=== PATIENT | female | born 1935 | race Caucasian/White ===

== ENCOUNTER → 2016-07-29 | Outpatient (CLI) | payer BC ==
[~2016-07-29] MED LIST: DILT180C69 PO; HYDR12.55 PO; INDSR80 PO; RIVA1TAB PO
--- NOTE | 2016-07-29 13:45 | MAMMOGRAPHY REPORT ---
BILATERAL DIGITAL SCREENING MAMMOGRAM WITH CAD: 07/29/2016 CLINICAL HISTORY: Routine screening. Patient has no complaints. TECHNIQUE: Current study was also evaluated with a Computer Aided Detection (CAD) system. Bilatera l CC and MLO views were obtained. COMPARISON: Comparison is made to exams dated: 07/24/2015 mammogram, 07/18/2014 mammogram, 07/12/2013 m ammogram, 07/06/2012 mammogram, and 07/01/2011 mammogram - [facility]. BREAST COMPOSITION: The tissue of both breasts is heterogeneously dense, which may obscure small ma sses. FINDINGS: No suspicious masses, calcifications, or areas of architectural distortion are noted in e ither breast. There has been no significant interval change compared to prior exams. Scattered bilat eral benign-appearing calcifications are not significantly changed. Asymmetry in the left medial br east on the cc view is stable dating back to at least the 2007 exam. IMPRESSION: ACR BI-RADS CATEGORY 2: BENIGN There is no mammographic evidence of malignancy. A 1 year screening mammogram is recommended. The p atient will receive written notification of the results. Approximately 10% of breast cancers are not detected with mammography. A negative mammographic repor t should not delay biopsy if a clinically suggestive mass is present. Kiley Powell M.D. ah/:07/29/2016 12:40:09 Trailer Assembler: Radha Sheldon RT(R)(M), [facility] letter sent: Normal 1/2 BI-RADS Code: ACR BI-RADS Category 2: Benign
== END | disposition home or self-care (01) ==
LOC: C.MAMM 11:19
PROVIDERS: ATTEND Obstetrics & Gynecology
DX: Z12.31 Encounter for screening mammogram for malignant neoplasm of breast (principal)

== ENCOUNTER 2017-07-30 16:14 | Emergency (ER) | payer BC ==
[~2017-07-30] VITALS: Ht 165.1 cm; Wt 62.6 kg
[2017-07-30 16:14] VITALS: TEMP 36.6; Ht 165.1 cm; Wt 62.6 kg
[2017-07-30] MEDS ORDERED: ONDANSETRON INJ 2 MG/ML 2 ML VIAL IV STA ×2 (16:23→18:07)
[2017-07-30] MEDS ORDERED: MoRPHine SULFATE 4 MG/ML 1 ML CARP\\VIAL IV PRN (16:30)
[2017-07-30 16:54] LABS: ISTAT CREATININE 1.1 mg/dl (0.6-1.3); ISTAT IONIZED CALCIUM 1.16 mmol/l (1.12-1.32); ISTAT POTASSIUM 3.4 mEq/L (3.3-5.0)
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
[2017-07-30 17:00] LABS: BASO % 0.5 %; BASO ABS # 0.03 K/uL (0-0.2); EOS % 4.6 %; EOS ABS # 0.28 K/uL (0-0.5); HEMATOCRIT 44.6 % (37-47); IG# 0.02 K/uL (0.00-0.02); LYMPH % 25.4 %; LYMPH ABS # 1.56 K/uL (1.2-3.4); MEAN CELL VOLUME 88.5 fL (80-100); MEAN CORPUSCULAR HEMOGLOBIN 29.8 pg (25-34); MEAN CORPUSCULAR HGB CONC 33.6 g/dl (32-36); MEAN PLATELET VOLUME 12.1 fL (7.4-10.4); MONO % 12.2 %; MONO ABS # 0.75 K/uL (0.11-0.59); NEUT ABS # 3.51 K/uL (1.4-6.5); PLATELET COUNT 185 K/uL (130-400); RED CELL DISTRIBUTION WIDTH CV 14.7 % (11.5-14.5); RED CELL DISTRIBUTION WIDTH SD 47.5 fL (36.4-46.3); WHITE BLOOD COUNT 6.15 K/uL (4.8-10.8)
[2017-07-30 17:07] LABS: INR 1.1 (0.9-1.1); PTT PATIENT 27.3 SECONDS (21.0-31.0)
[2017-07-30 17:21] LABS: ALBUMIN 3.7 gm/dl (3.4-5.0); ALT/SGPT 23 U/L (12-78); BLOOD UREA NITROGEN 20 mg/dl (7-18); CALCIUM 9.2 mg/dl (8.5-10.1); CARBON DIOXIDE 29 mmol/L (21-32); CREATININE 1.05 mg/dl (0.60-1.20); GLUCOSE 69 mg/dl (70-99); LIPASE 225 U/L (73-393); POTASSIUM 3.3 mmol/L (3.5-5.1); SODIUM 142 mmol/L (136-145)
[2017-07-30] MEDS ORDERED: FURO-85 PO (17:23)
[2017-07-30] MEDS ORDERED: MULT-513 PO (17:23)
[2017-07-30] MEDS ORDERED: CALCTAB7 PO (17:23)
[2017-07-30] MEDS ORDERED: RIVA1TAB4 PO (17:23)
[2017-07-30] MEDS ORDERED: PROP80TA2 PO (17:23)
[2017-07-30] MEDS ORDERED: AMLO2.5T PO (17:23)
[2017-07-30 17:26] LABS: ALKALINE PHOSPHATASE 61 U/L (45-117); AST/SGOT 21 U/L (15-37); TOTAL PROTEIN 6.9 gm/dl (6.4-8.2)
[2017-07-30] MEDS ORDERED: OPTIRAY 320 IV PRN (17:30)
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
[2017-07-30] MEDS ORDERED: OXYC1TAB3 PO (19:20)
[2017-07-30] MEDS ORDERED: OXYCODONE IR HOME PACK PO ONE (19:30)
[2017-07-30] MEDS ORDERED: ONDANSETRON HOME PACK 4MG OD TAB PO ONE (19:30)
[2017-07-30] MEDS ORDERED: PROMETHAZINE HCL INJ 6.25 MG in SODIUM CHLORIDE 0.9% 50ML 50 ML IV STA (19:41)
[2017-07-30 20:15] VITALS: BP 146/90; PULSE 70; O2SAT 96
== END 2017-07-30 20:15 | disposition home or self-care (01) ==
LOC: EDBD 16:14 → C.EDA 16:16
DX: S20.219A Contusion of unspecified front wall of thorax, initial encounter (principal); R11.2 Nausea with vomiting, unspecified; V43.62XA Car passenger injured in collision with other type car in traffic accident, initial encounter; I48.91 Unspecified atrial fibrillation; I10 Essential (primary) hypertension; Z79.01 Long term (current) use of anticoagulants; Z88.0 Allergy status to penicillin

== ENCOUNTER → 2017-09-22 | Outpatient (CLI) | payer BC ==
[~2017-09-22] MED LIST changes: +AMLO2.5T PO; +CALCTAB7 PO; -DILT180C69 PO; +FURO-85 PO; -HYDR12.55 PO; -INDSR80 PO; +MULT-513 PO; +OXYC1TAB3 PO; +PROP80TA2 PO; -RIVA1TAB PO; +RIVA1TAB4 PO
--- NOTE | 2017-09-23 07:46 | MAMMOGRAPHY REPORT ---
BILATERAL DIGITAL SCREENING MAMMOGRAM TOMOSYNTHESIS WITH CAD: 09/22/2017 CLINICAL HISTORY: Routine screening. Patient has no complaints. TECHNIQUE: Breast tomosynthesis in addition to standard 2D mammography was performed. Current study was also evaluated with a Computer Aided Detection (CAD) system. COMPARISON: Comparison is made to exams dated: 08/01/2015 ultrasound, 08/01/2015 mammogram, 07/24/2015 mammogram, 07/18/2014 mammogram, 07/29/2016 mammogram, and 07/12/2013 mammogram - [facility] enter. BREAST COMPOSITION: The tissue of both breasts is heterogeneously dense, which may obscure small mas ses. FINDINGS: No suspicious masses, calcifications, or areas of architectural distortion are noted in ei ther breast. There has been no significant interval change compared to prior exams. Scattered bilater al benign-appearing calcifications are not significantly changed. IMPRESSION: ACR BI-RADS CATEGORY 2: BENIGN There is no mammographic evidence of malignancy. A 1 year screening mammogram is recommended. The pa tient will receive written notification of the results. Approximately 10% of breast cancers are not detected with mammography. A negative mammographic report should not delay biopsy if a clinically suggestive mass is present. Kiley Powell M.D. /:09/22/2017 16:19:40 Director Counseling Bureau: Nona GARCIA)(M), [facility] letter sent: Normal 1/2 BI-RADS Code: ACR BI-RADS Category 2: Benign
== END | disposition home or self-care (01) ==
LOC: C.MAMM 11:32
PROVIDERS: ATTEND Obstetrics & Gynecology
DX: Z12.31 Encounter for screening mammogram for malignant neoplasm of breast (principal)

== ENCOUNTER 2025-05-25 09:55 | Inpatient (IN) ==
[2025-05-25 10:59] LABS: Hematocrit (blood only) 45.9 % (37.0-47.0); Hemoglobin 15.3 g/dL (12.0-16.0); Immature Granulocytes # (auto) 0.02 K/uL (0.01-0.20); Immature Granulocytes % (auto) 0.3 %; Mean Corpuscular Hemoglobin 29.4 pg (25.0-34.0); Mean Corpuscular Volume 88.3 fL (80.0-100.0); Platelet Count 257 K/uL (130-400); RDW Standard Deviation 50.0 fL (36.4-46.3); Red Blood Count 5.20 M/uL (4.20-5.40); White Blood Count 6.36 K/ul (4.8-10.8)
[2025-05-25 11:17] LABS: Alanine Aminotransferase 14.0 U/L (7-52); Albumin Globulin Ratio 1.5 (0.9-2); Albumin Level 4.7 gm/dl (3.4-5.0); Alkaline Phosphatase 66.0 U/L (34-104); Anion Gap 8.0 (3-11); Bilirubin,Total 1.1 mg/dl (0.2-1.0); Blood Urea Nitrogen 16.0 mg/dl (6-23); Calcium 10.2 mg/dl (8.6-10.3); Carbon Dioxide 30.0 mmol/L (21-32); Chloride 104.0 mmol/L (98-107); Creatinine Clr Calc Pharmacy 45.8 ml/min; Globulin 3.1 gm/dl (2.5-4.0); Glucose 97.0 mg/dl (70-99(Fasting)); Potassium 3.7 mmol/L (3.5-5.1); Sodium 142.0 mmol/L (136-145); Total Protein 7.8 gm/dl (6.0-8.3)
--- NOTE | 2025-05-25 11:32 | Emergency Department Note ---
Impression & Plan BRBPR (bright red blood per rectum) ED Provider Note NAME: NEGIN PLAZA AGE: 89 SEX: F : 1935 ARRIVES VIA: Walk-In INFORMANT: Patient, ED PROVIDER(S): Zeyad Clifton MD CHIEF COMPLAINT: Rectal bleeding HPI: This is a 89-year-old female presents for rectal bleeding. Patient notes that over the past few days she has had stools that are mixed with blood. She notes that the stools are light-colored with blood when they hit the toilet bowl. She reports no black color. She reports redness in the stools as well. It is not painful. She had a colonoscopy about 3 years ago. She reports no fevers, chills, nausea, vomiting, diarrhea, pain, chest pain. ROS: See above HPI for pertinent positives & negatives. A total of 10 systems reviewed and were otherwise negative. PAST MEDICAL HISTORY: See Below PAST SURGICAL HISTORY: See Below FAMILY HISTORY: See Below SOCIAL HISTORY: See Below HOME MEDICATIONS: See Below ALLERGIES: See Below VITALS: See Below PHYSICAL EXAMINATION: General: resting comfortably in no acute distress Head: Normocephalic and atraumatic Eyes: Normal inspection, extraocular muscles intact Ear, nose, throat: Normal external exam Neck: Normal range of motion Respiratory: lungs clear to auscultation bilaterally Cardiovascular: Regular rate/rhythm, no murmur GI: soft, nontender, no guarding or rebound : Hemoccult positive stool, red/orange in color Extremities: nontender, moves all extremities Neuro: The patient awake and alert, appropriately conversive, no focal deficits, symmetric faces Skin: Warm, dry, and intact MEDICAL DECISION MAKING: This is a 89-year-old female presenting for rectal bleeding. Patient has painless rectal bleeding, stools are red. Will do screening blood work. - Bloodwork is reviewed showing no significant leukocytosis, anemia, electrolyte or creatinine abnormality. Currently on a blood thinner, Xarelto -Patient currently has active GI bleeding, appears to be lower. She appears well but will require admission due to persistent bleeding over the past few days as well as age. -Discussed with hospital service for admission Differential diagnosis: Lower versus upper GI bleed, hemorrhoids Independent History obtained from: Diagnostics interpreted by me: Cardiac Monitoring: An order was placed for continuous cardiac monitoring. The monitor shows a rate of 81 with sinus rhythm. Past Med/Surg History Problem List (Updated 05/26/25 @ 06:48 by Zeyad Clifton MD) BRBPR (bright red blood per rectum) (Acute) Hypertension Atrial fibrillation Vitamin D deficiency Tremor Postmenopausal status Osteopenia Heartburn Hypertension (Chronic) Atrial fibrillation (Chronic) Chest pain (Acute 10/29/13) Chest pain (Acute) Surgical History (Updated 05/14/21 @ 13:10 by Delilah Weeks MD, FACOG) History of tubal ligation History of oral surgery Tooth extraction History of colonoscopy History of permanent cardiac pacemaker placement History of dilation and curettage History of tonsillectomy History of cataract surgery Family History (Updated 05/05/21 @ 13:44 by Amanda Dave) Mother Breast cancer Familial tremor Grandmother (Maternal) Breast cancer Father Aortic aneurysm Denies family history of Ovarian cancer Colorectal cancer Social History (Updated 05/14/21 @ 13:00 by Devi Mckeon LPN) Smoking Status: Never smoker Do You Dip or Chew Tobacco: No; Hx Alcohol Use: No Hx Substance Use: No Preferred Language: Scottish Communication Ability: Effective Client Evaluator Required: No Beliefs That Will Affect Care: None Current Living Situation: Spouse Other Information That Helps Us Care for You: No Feels Safe at Home: Yes Safety Concerns: Feels Safe At This Time Assistive Devices: Glasses Allergies Allergies Allergy/AdvReac Type Severity Reaction Status Date / Time Penicillins Allergy Mild HIVES Verified 09/05/24 07:45 Home Meds Home Medications Medication Instructions Recorded Confirmed calcium carbonate (Calcium 600) 600 mg PO DAILY 06/25/20 05/25/25 multivitamin 1 tab PO DAILY 06/25/20 05/25/25 rivaroxaban 20 mg tablet (Xarelto) 20 mg PO DAILY 06/25/20 05/25/25 furosemide 20 mg tablet (Lasix) 20 mg PO DAILY 07/02/20 05/25/25 propranolol 80 mg tablet 60 mg PO DAILY 07/02/20 05/25/25 amlodipine 2.5 mg tablet 2.5 mg PO DAILY 09/05/24 05/25/25 Results & Data (ED) Vital Signs Vital Signs - 24 hr 05/25/25 10:10 05/25/25 11:00 05/25/25 11:30 Temperature 36.5 C Temperature Source Skin Pulse Rate 78 75 Pulse Rate from SpO2 Sensor 75 Respiratory Rate 16 18 Respiratory Effort / Characteristics Non-Labored Spontaneous Respiratory Depth Normal Respiratory Pattern Regular Blood Pressure 167/96 H 163/91 H Blood Pressure Mean 119 132 Pulse Oximetry 96 96 Oxygen Delivery Method Room Air Sepsis Recent Fever Within 48 Hours No Sepsis New/Unexplained Change in Mental Status N/A Sepsis Action Taken by Nursing No Action Required 05/25/25 11:30 05/25/25 12:00 05/25/25 12:00 Temperature Temperature Source Pulse Rate 72 75 Pulse Rate from SpO2 Sensor 72 75 Respiratory Rate 19 18 Respiratory Effort / Characteristics Respiratory Depth Respiratory Pattern Blood Pressure 169/107 H Blood Pressure Mean 130 Pulse Oximetry 95 96 Oxygen Delivery Method Room Air Sepsis Recent Fever Within 48 Hours Sepsis New/Unexplained Change in Mental Status Sepsis Action Taken by Nursing 05/25/25 12:25 05/25/25 12:30 05/25/25 12:30 Temperature Temperature Source Pulse Rate 71 76 Pulse Rate from SpO2 Sensor 76 Respiratory Rate 18 Respiratory Effort / Characteristics Respiratory Depth Respiratory Pattern Blood Pressure 162/88 H Blood Pressure Mean 122 Pulse Oximetry 96 Oxygen Delivery Method Room Air Sepsis Recent Fever Within 48 Hours Sepsis New/Unexplained Change in Mental Status Sepsis Action Taken by Nursing Laboratory Data 05/26/25 05:48 05/26/25 05:48 Lab Results 05/25/25 05/25/25 05/25/25 Range/Units 10:33 10:45 11:09 WBC 6.36 (4.8-10.8) K/ul RBC 5.20 (4.20-5.40) M/uL Hgb 15.3 (12.0-16.0) g/dL Hct 45.9 (37.0-47.0) % MCV 88.3 (80.0-100.0) fL MCH 29.4 (25.0-34.0) pg MCHC 33.3 (32.0-36.0) g/dL RDW Std Deviation 50.0 H (36.4-46.3) fL RDW Coeff of Kehinde 15.4 H (11.5-14.5) % Plt Count 257 (130-400) K/uL MPV 12.4 (9.4-12.4) fL Immature Gran % (Auto) 0.3 % Neut % (Auto) 67.1 % Lymph % (Auto) 20.3 % [place] % (Auto) 7.7 % Eos % (Auto) 3.8 % Baso % (Auto) 0.8 % Neut # (Auto) 4.27 (1.40-6.50) K/uL Lymph # (Auto) 1.29 (1.20-3.40) K/uL [place] # (Auto) 0.49 (0.11-0.59) K/uL Eos # (Auto) 0.24 (0.00-0.50) K/uL Baso # (Auto) 0.05 (0.00-0.20) K/uL Immature Gran # (Auto) 0.02 (0.01-0.20) K/uL PT 15.8 H (9.0-12.0) Seconds INR 1.5 H (0.9-1.1) APTT 37 H (21-31) Seconds PTT Ratio 1.4 Sodium 142 (136-145) mmol/L Potassium 3.7 (3.5-5.1) mmol/L Chloride 104 (98-107) mmol/L Carbon Dioxide 30 (21-32) mmol/L Anion Gap 8 (3-11) BUN 16 (6-23) mg/dl Creatinine 0.81 (0.6-1.2) mg/dl Est Cr Clr Drug Dosing 45.8 ml/min eGFR 70.21 BUN/Creatinine Ratio 19.8 (10-20) Glucose 97 (70-99(Fasting)) mg/dl Calcium 10.2 (8.6-10.3) mg/dl Total Bilirubin 1.1 H (0.2-1.0) mg/dl AST 25 (13-39) U/L ALT 14 (7-52) U/L Alkaline Phosphatase 66 (34-104) U/L Total Protein 7.8 (6.0-8.3) gm/dl Albumin 4.7 (3.4-5.0) gm/dl Globulin 3.1 (2.5-4.0) gm/dl Albumin/Globulin Ratio 1.5 (0.9-2) POC Stool Occult Blood Negative (Negative) Blood Type A Positive Antibody Screen NEGATIVE Discharge Plan Visit Data Chief Complaint: Rectal Bleed Stated Complaint: RECTAL BLEEDING, REF BY DOC ED Provider: Clifton,Niketu J. Discharge Problem: BRBPR (bright red blood per rectum) Patient Disposition: Admitted As Inpatient Condition: Fair Discharge Instructions Interventions: ED Discharge Assessment Last Done: 05/25/25 15:35
[2025-05-25 11:45] LABS: INR 1.5 (0.9-1.1); Partial Thromboplastin Time 37 Seconds (21-31); Prothrombin Time 15.8 Seconds (9.0-12.0)
[2025-05-25] MEDS ORDERED: ACETAMINOPHEN 325 MG TAB PO PRN (13:36)
--- NOTE | 2025-05-25 13:49 | History & Physical Report ---
"Date of Service May 25, 2025 Assessment & Plan (1) BRBPR (bright red blood per rectum): (2) Atrial fibrillation: (3) Hypertension: Plan This is an 89 year old female with past medical history of A fib and HTN who presented to the ED on 05/25/2025 for BRBPR. #BRBPR w/ ~ 3 day hx of BRBPR in toilet bowel and when wiping. Suspect diverticular vs hemorrhoidal in the setting of Xarelto Hgb completely stable at 15.3. Renal function WNL FOBT negative in ED but per ED provider rectal exam with red/orange stool Hold Xarelto & monitor BM's, no BM since 05/24 evening & also was her last dose of Xarelto. Suspect bleeding will subside with holding anticoagulation Maintain clear liquid diet AM hgb, monitor for further signs of bleeding. #Hyperbilirubinemia non-specific elevation of TB at 1.1 with remainder of LFTs WNL No abdominal imaging in chart AM CMP & DB #A fib | HTN Hold Xarelto in the setting of bleeding Continue Propranolol & Amlodipine. DVT prophylaxis: SCD's Code: full Updated at bedside at time of admission. Case was discussed with Dr. Srinivasan at time of admission. History of Present Illness Primary Care Provider: Gina Scanlon MD This is an 89 year old female with past medical history of A fib and HTN who presented to the ED on 05/25/2025 for BRBPR. Lizbet was seen & examined this morning. She reports that she has had ongoing rectal bleeding w/ BM's for the last 3 days. Reports her last episode was yesterday evening. She states that the blood is on the toilet paper and in the toilet bowel. She also believes that the stool is mixed with blood. She reports slight abdominal discomfort but denies any pain. Denies this happening in the past. States she had a CN in 2021. Her last dose of Xarelto was yesterday evening. She denies any additional complaints including CP, SOB, changes in bladder, LE edema, fever, chills, headache, or dizziness. While in the ED, a rectal exam was performed by the ED physician indicating red/orange stool. She was ordered no imaging. CBC is unremarkable with a hgb of 15.3. INR was elevated at 1.5 secondary to Xarelto use. BMP was unremarkable as well. TB was nonspecifically elevated at 1.1 but no additional elevations of her LFTs. FOBT testing in the ED was negative. Code discussion did take place and she does confirm that she is a full code. Allergies Allergy/AdvReac Type Severity Reaction Status Date / Time Penicillins Allergy Mild HIVES Verified 09/05/24 07:45 Home Medications Medication Instructions Recorded Confirmed Type calcium carbonate (Calcium 600) 600 mg PO DAILY 06/25/20 05/25/25 History multivitamin 1 tab PO DAILY 06/25/20 05/25/25 History rivaroxaban 20 mg tablet (Xarelto) 20 mg PO DAILY 06/25/20 05/25/25 History furosemide 20 mg tablet (Lasix) 20 mg PO DAILY 07/02/20 05/25/25 History propranolol 80 mg tablet 60 mg PO DAILY 07/02/20 05/25/25 History amlodipine 2.5 mg tablet 2.5 mg PO DAILY 09/05/24 05/25/25 History Past Med/Surg History Problem List (Updated 05/25/25 @ 13:55 by Daya Vasquez PA-C) BRBPR (bright red blood per rectum) Hypertension Atrial fibrillation Vitamin D deficiency Tremor Postmenopausal status Osteopenia Heartburn Hypertension (Chronic) Atrial fibrillation (Chronic) Chest pain (Acute 10/29/13) Chest pain (Acute) Surgical History (Updated 05/14/21 @ 13:10 by Delilah Weeks MD, FACOG) History of tubal ligation History of oral surgery Tooth extraction History of colonoscopy History of permanent cardiac pacemaker placement History of dilation and curettage History of tonsillectomy History of cataract surgery Family History (Updated 05/05/21 @ 13:44 by Amanad Dave) Mother Breast cancer Familial tremor Grandmother (Maternal) Breast cancer Father Aortic aneurysm Denies family history of Ovarian cancer Colorectal cancer Social History (Updated 05/14/21 @ 13:00 by Devi Mckeon LPN) Smoking Status: Never smoker Do You Dip or Chew Tobacco: No; Preferred Language: Upper Sorbian Feels Safe at Home: Yes Physical Exam Physical Exam: General: NAD, VS: BP 162/88; P76; R18; T36.5C Resp: normal respiratory effort, lungs clear to auscultation CV: RRR, no murmur Abd: normal bowel sounds, non tender Extremities: Moves all extremities, no edema Neuro: A&O x3 Skin: intact, no lesions noted Results & Data Results & Data Vital Signs (Past 12 Hours) Vital Signs Temp Pulse Resp BP Pulse Ox O2 Del Method 05/25/25 12:30 76 18 96 Room Air 05/25/25 12:30 162/88 H 05/25/25 12:25 71 05/25/25 12:00 75 18 96 05/25/25 12:00 169/107 H 05/25/25 11:30 72 19 95 Room Air 05/25/25 11:30 163/91 H 05/25/25 11:00 75 18 96 05/25/25 10:10 36.5 C 78 16 167/96 H 96 Room Air Supervising Physician Co-Signing Physician Notes The patient was seen by me. The chart was reviewed. Case discussed with VICTOR M Stone. Agree with assessment and plan PG Care Time/CCT Total # of Minutes Spent Total Time Spent with Patient: Total time spent is greater than 50% in coordination of care (as documented) at patient's floor/unit and/or counseling patient: Coding Level of Care Code 93012 INT INP/OBS CARE 2/55MIN Diagnoses BRBPR (bright red blood per rectum) K62.5 Atrial fibrillation I48.91 Hypertension I10"
[2025-05-26 06:08] LABS: Hematocrit (blood only) 38.1 % (37.0-47.0); Hemoglobin 12.6 g/dL (12.0-16.0); Mean Corpuscular Hemoglobin 28.8 pg (25.0-34.0); Mean Corpuscular Volume 87.0 fL (80.0-100.0); Platelet Count 192 K/uL (130-400); RDW Standard Deviation 48.6 fL (36.4-46.3); Red Blood Count 4.38 M/uL (4.20-5.40); White Blood Count 5.17 K/ul (4.8-10.8)
[2025-05-26 06:40] LABS: Alanine Aminotransferase 10.0 U/L (7-52); Albumin Level 3.8 gm/dl (3.4-5.0); Alkaline Phosphatase 51.0 U/L (34-104); Anion Gap 8.0 (3-11); Bilirubin,Total 1.0 mg/dl (0.2-1.0); Blood Urea Nitrogen 17.0 mg/dl (6-23); Calcium 8.8 mg/dl (8.6-10.3); Carbon Dioxide 28.0 mmol/L (21-32); Chloride 107.0 mmol/L (98-107); Creatinine Clr Calc Pharmacy 51.5 ml/min; Glucose 83.0 mg/dl (70-99(Fasting)); Potassium 3.9 mmol/L (3.5-5.1); Sodium 143.0 mmol/L (136-145); Total Protein 6.0 gm/dl (6.0-8.3)
[2025-05-26 07:20] VITALS: BP 131/80; PULSE 98; RESP 17; TEMP 98.2; O2SAT 96
[2025-05-26] MEDS: MULTIVITAMIN TAB PO SCH (09:34)
[2025-05-26] MEDS: PROPRANOLOL HCL LA 80 MG CAPCR PO SCH (09:35)
--- NOTE | 2025-05-26 09:44 | Discharge Summary ---
"Discharge Summary Date of Service May 26, 2025 Principal Dx & Hospital Course #1 = Principal Diagnosis (1) BRBPR (bright red blood per rectum): (2) Atrial fibrillation: (3) Hypertension: Plan This is an 89 year old female with past medical history of A fib and HTN who presented to the ED on 05/25/2025 for BRBPR. #BRBPR - resolved w/ ~ 3 day hx of BRBPR in toilet bowel and when wiping. Suspect diverticular vs hemorrhoidal in the setting of Xarelto Hgb WNL. Renal function WNL FOBT negative in ED but per ED provider rectal exam with red/orange stool. BM overnight w/ blood tinged & BM 05/26 prior to discharge brown w/o signs of bleeding. Plan to resume Xarelto on 05/28. Resume previous diet Recommend discuss w/ PCP at follow up risks vs benefits of repeat CN. - last CN in 2021 & pt w/ advanced age + comorbidities. #Hyperbilirubinemia - resolved non-specific elevation of TB at 1.1 with remainder of LFTs WNL on admission; repeat on 05/26 shows now all LFTs including TB & DB WNL No abdominal imaging in chart #A fib | HTN Hold Xarelto in the setting of bleeding; resume 05/28. Continue Propranolol & Amlodipine. Patient discharged home 05/26. Admission HPI Per Admitting Provider This is an 89 year old female with past medical history of A fib and HTN who presented to the ED on 05/25/2025 for BRBPR. Lizbet was seen & examined this morning. She reports that she has had ongoing rectal bleeding w/ BM's for the last 3 days. Reports her last episode was yesterday evening. She states that the blood is on the toilet paper and in the toilet bowel. She also believes that the stool is mixed with blood. She reports slight abdominal discomfort but denies any pain. Denies this happening in the past. States she had a CN in 2021. Her last dose of Xarelto was yesterday evening. She denies any additional complaints including CP, SOB, changes in bladder, LE edema, fever, chills, headache, or dizziness. While in the ED, a rectal exam was performed by the ED physician indicating red/orange stool. She was ordered no imaging. CBC is unremarkable with a hgb of 15.3. INR was elevated at 1.5 secondary to Xarelto use. BMP was unremarkable as well. TB was nonspecifically elevated at 1.1 but no additional elevations of her LFTs. FOBT testing in the ED was negative. Code discussion did take place and she does confirm that she is a full code. Discharge Exam General: NAD, VS: BP 131/80; P98; R17; T36.8C Resp: normal respiratory effort Extremities: Moves all extremities, no edema Neuro: A&O x3 Skin: intact, no lesions noted Discharge Plan Discharge Items Patient Disposition: Home - Self-Care Reason For Visit: RECTAL BLEEDING Discharge Diagnosis: Rectal bleed Condition on Discharge: Fair Activity: Resume your previous activity Non-emergency contact: Primary Care Provider Call non-emergency contact if: you have any medication questions and your symptoms worsen Follow-up/Referrals: Gina Scanlon MD [Primary Care Provider] - Diet: Regular Addtl Attending Provider Instructions: Mrs. Hagan, Adrian were hospitalized secondary to rectal bleeding. This is thought to be due to internal hemorrhoids being irritated. We have placed your Xarelto on hold and the bleeding seems to have slowed down. Your hemoglobin remained stable during your hospital stay and no anemia was present. Medications: Your medication list has been reviewed and reconciled upon discharge to ensure accuracy and continuity of care. An updated list of all your medications is included with your hospital discharge paperwork. Please review this list closely, and make note of any changes. Please hold Xarelto on discharge, you may resume on 05/28. Take your medications as instructed; do not skip a dose of your medicines. Make sure all of your doctors know every medicine you are taking (including o ejg-rrn-[id number] medicines, vitamins, and supplements). Call your primary care provider before taking any new medicines (including over- the-counter medicines, vitamins, and supplements), because some of these may interact with your current medications, or may make your symptoms worse. Tell your primary care provider if you cannot afford your medications. Activity: You can do normal everyday activities as your body allows. Take rest breaks if you feel tired. Do not overexert. Stop activity if you have pain, shortness of breath or feel dizzy. Follow-up appointments: Make an appointment with your primary care physician within one week of discharge. A copy of this summary will be sent to them. Every time you see your primary care physician, or any other doctor, bring your medication list, and a list of questions. At your follow up visit, please discuss with your PCP a colonoscopy. If you are interested in a repeat, they can refer you back to the GI office for one. CONTACT YOUR PRIMARY CARE PROVIDER if you experience any of the following: Shortness of breath or difficulty breathing Fevers or chills Feeling tired with normal activity or experiencing dizziness or fainting Difficulty following your treatment plan, or difficulty taking medications CALL 911 OR GO TO THE EMERGENCY DEPARTMENT if you experience any of the following: Severe abdominal pain or nausea/vomiting Severe chest pain, or chest pain that radiates (moves) to your jaw or arm Sudden, severe shortness of breath or difficulty breathing Thank you for allowing us to participate in your care. Pending Studies at Discharge: No Stand-Alone Forms: My [facility], Smoking Cessation Medications and DC Order Prescriptions: Continued multivitamin Tablet 1 tab PO DAILY calcium carbonate [Calcium 600] 600 mg calcium (1,500 mg) tablet 600 mg PO DAILY furosemide [Lasix] 20 mg tablet 20 mg PO DAILY Rx Instructions: Only taking Tuesday, Tuesday and Tuesday propranolol 80 mg tablet 60 mg PO DAILY amlodipine 2.5 mg tablet 2.5 mg PO DAILY Held Xarelto 20 mg tablet 20 mg PO DAILY Hold Instructions: Resume on 05/28/25. Rx Instructions: must administer with evening meal Discharge Orders: Discharge Order (Routine); Ordered 05/26/25 Ordered By: Daya Vasquez Admission Data Admit Date/Time: 05/25/25 13:36 Attending Provider: Raúl Srinivasan Admit Provider: Raúl Srinivasan Primary Care Provider: Gina Scanlon Other Providers: Raúl Srinivasan Other Interventions: Discharge Summary Assessment (RN) Last Done: 05/26/25 11:05 Hospital Stay Data Consultations 05/25/25 13:58 ED Decision to Admit Stat Pending Results Patient Have Any Pending Studies at Discharge: No Discharge Instructions Given to Patient (Per Discharging Provider) Mrs. Hagan, Adrian were hospitalized secondary to rectal bleeding. This is thought to be due to internal hemorrhoids being irritated. We have placed your Xarelto on hold and the bleeding seems to have slowed down. Your hemoglobin remained stable during your hospital stay and no anemia was present. Medications: Your medication list has been reviewed and reconciled upon discharge to ensure accuracy and continuity of care. An updated list of all your medications is included with your hospital discharge paperwork. Please review this list closely, and make note of any changes. Please hold Xarelto on discharge, you may resume on 05/28. Take your medications as instructed; do not skip a dose of your medicines. Make sure all of your doctors know every medicine you are taking (including wrce-maq-ostoccn medicines, vitamins, and supplements). Call your primary care provider before taking any new medicines (including over- the-counter medicines, vitamins, and supplements), because some of these may interact with your current medications, or may make your symptoms worse. Tell your primary care provider if you cannot afford your medications. Activity: You can do normal everyday activities as your body allows. Take rest breaks if you feel tired. Do not overexert. Stop activity if you have pain, shortness of breath or feel dizzy. Follow-up appointments: Make an appointment with your primary care physician within one week of discharge. A copy of this summary will be sent to them. Every time you see your primary care physician, or any other doctor, bring your medication list, and a list of questions. At your follow up visit, please discuss with your PCP a colonoscopy. If you are interested in a repeat, they can refer you back to the GI office for one. CONTACT YOUR PRIMARY CARE PROVIDER if you experience any of the following: Shortness of breath or difficulty breathing Fevers or chills Feeling tired with normal activity or experiencing dizziness or fainting Difficulty following your treatment plan, or difficulty taking medications CALL 911 OR GO TO THE EMERGENCY DEPARTMENT if you experience any of the fol lowing: Severe abdominal pain or nausea/vomiting Severe chest pain, or chest pain that radiates (moves) to your jaw or arm Sudden, severe shortness of breath or difficulty breathing Thank you for allowing us to participate in your care. Supervising Physician Co-Signing Physician Notes The patient was not seen by me. The chart was reviewed. Case discussed with VICTOR M Stone. Agree with assessment and plan Total Time Total Time Spent Total Time Spent (In Minutes): 35 Total Time Includes: Examination of the Patient, Discharge Planning and Medication Reconciliation Coding Level of Care Code 31773 INP/OBS DISCH >30 MIN Diagnoses BRBPR (bright red blood per rectum) K62.5 Atrial fibrillation I48.91 Hypertension I10"
--- NOTE | 2025-05-27 21:58 | Electrocardiogram Report ---
Test Reason : Blood Pressure : */* mmHG Vent. Rate : 72 BPM Atrial Rate : 192 BPM P-R Int : * ms QRS Dur : 150 ms QT Int : 442 ms P-R-T Axes : * -79 22 degrees QTcB Int : 483 ms Ventricular-paced rhythm Abnormal ECG When compared with ECG of 30-Jul-2017 16:46, Ventricular pacing is now present Confirmed by Jonathon Guevara ([id number]) on 05/27/2025 9:57:58 PM Referred By: Marilyn Bardales Confirmed By: Jonathon Guevara
== END 2025-05-26 12:07 | disposition home or self-care (01) | DRG 379 ==
LOC: SUATTDRO → ED 09:55 → 3N 13:36